=== PATIENT | female | born 1950 | race Caucasian/White ===

== ENCOUNTER → 2017-12-07 | Outpatient (CLI) | payer MEDICARE, OTHER ==
--- NOTE | 2017-12-08 10:04 | RADIOLOGY IMAGING REPORT ---
FACILITY: [facility] - [place] PATIENT NAME: MARISABEL CORBIN : [id number] MR: [id number] V: [id number] EXAM DATE: ORDERING PHYSICIAN: DANIS DRISCOLL TECHNOLOGIST: Lydia Ambriz PROCEDURE:BILATERAL DIAGNOSTIC DIGITAL MAMMOGRAM WITH CAD ASSISTED INTERPRETATION & 3D TOMOSYNTHESIS COMPARISON:Prior mammograms 11/11/16, 01/14/15, 01/01/15, 12/25/13, 09/20/12. INDICATIONS:right breast lump 10 o'clock position Right breast and Right axilla. FINDINGS: Moderately heterogeneous fibroglandular tissue is seen throughout the breasts. The parenchymal pattern has remained stable allowing for difference in mammographic technique & patient positioning. An area of postsurgical scaring in the upper outer quadrant of the Left breast is again seen from prior lumpectomy. There is no demonstration of malignant appearing mass, malignant appearing calcifications or other secondary sign of malignancy in either breast. Today's Right breast Ultrasound revealed no sonographic abnormality as detailed on a separate report. Therefore clinical follow-up recommended for patient's palpable findings. DIAGNOSTIC CATEGORY 2--BENIGN FINDING. RECOMMENDATIONS: ROUTINE MAMMOGRAM AND CLINICAL EVALUATION. IMPRESSION: BIRADS 2: Benign finding No mammographic or sonographic findings were identified to account for patient's palpable finding in the approximate 10 o'clock position of the Right breast and the axillary portion of the Right breast therefore clinical follow-up recommended. Note a negative mammogram or Ultrasound report should not preclude biopsy of the clinically suspicious lesion. Dictated by: Jacklyn Gallardo M.D. on 12/07/2017 at 17:17 Transcribed by: SHILPA on 12/08/2017 at 9:04 Approved by: Jacklyn Gallardo M.D. on 12/08/2017 at 10:02 [facility]
--- NOTE | 2017-12-09 09:58 | RADIOLOGY IMAGING REPORT ---
[place] [facility] [place] MARISABEL CORBIN : [id number] MR: [id number] V: [id number] EXAM DATE: [id number] ORDERING PHYSICIAN: DANIS DRISCOLL TECHNOLOGIST: Armando Fuentes PROCEDURE:US RIGHT BREAST COMPARISON:None. INDICATIONS:right breast lump FINDINGS: Patient states the palpable finding is in her Right axilla. The Right breast was imaged in the 9,10,11 & 12 o'clock positions of the Right breast in addition to the Right axilla revealing no sonographic abnormality therefore clinical follow-up recommended for patient's palpable findings. No abnormality was identified in the Right axilla nor in the 9-12 o'clock position of the Right breast therefore clinical follow-up recommended for patient's palpable findings. DIAGNOSTIC CATEGORY 2--BENIGN FINDING. RECOMMENDATIONS: CLINICAL EVALUATION. IMPRESSION: BIRADS 2: Benign finding No sonographic abnormality identified to account for patient's palpable findings in the Right axilla therefore clinical follow-up recommended. Abnormal or negative mammogram or Ultrasound report should not preclude biopsy of a clinically suspicious lesion. Dictated by: Jacklyn Gallardo M.D. on 12/07/2017 at 17:19 Transcribed by: SHILPA on 12/08/2017 at 9:12 Approved by: Jacklyn Gallardo M.D. on 12/09/2017 at 9:57 [facility]
== END ==
LOC: MAMO 02:17
PROVIDERS: ATTEND Family Medicine
DX: N63.11 Unspecified lump in the right breast, upper outer quadrant (principal)
CPT/HCPCS: 77062; 77066

== ENCOUNTER 2018-06-21 13:45 | Outpatient (RCR) | payer MEDICARE, OTHER ==
--- NOTE | 2018-04-07 17:07 | PT INITIAL EVALUATION ---
MEDICAL DIAGNOSIS: Hand Swelling, Localized Edema TREATMENT DIAGNOSIS: Left UE Lymphedema DATE OF ONSET: 01/05/18 SUBJECTIVE: Shira is a 67 year old female presenting to physical therapy following onset of L UE swelling starting in January 2018. Pt reports that after several warm days she noticed her L hand started swelling. The swelling came on gradually and use to go down all the way at night, but now no longer does. Pt reports a history of L breast cancer with lymph node removal, radiation and chemotherapy in 1992. Since Shira has had occasional swelling of the L LE, but never in the L arm until now. Pt reports no pain with swelling but does have discomfort with pressure and tightness of the skin. Pt started wearing an arthritis compression glove which seems to keep it from worsening at this time. REHAB PROBLEM LIST: Decreased ROM Decreased Function Decreased ADL's Decreased Mobility PREVIOUS MEDICAL HISTORY: Hx of RA in B hands, See EMR OCCUPATION: Retired [employer] Programmer OBJECTIVE: Pt presents with increased swelling of the L UE compared to the R with swelling most present in the dorsum of the hand and fingers. Palpation: Pt has 3+ pitting edema on the dorsum of the hand. Stemmer's sign positive on dorsum and on digits 2-4. 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 Physical therapy consisting of complete decongestive therapy (CDT) is indicated for this patient to improve functional mobility with ADL's and treat the above listed impairments. Short Term Goals In 2 weeks pt will reduce L UE circumferential volume of the wrist by 30% compared to the R UE. In 4 weeks pt will reduce L UE circumferential volume of the wrist by 60% compared to the R UE. In 4 weeks pt will decrease LLIS score to 15/20 or less for improved function with ADL's. In 4 weeks pt will be independent with HEP and compression garment use fo management of lymphedema. Patient's Goals Decrease edema, improve functional use of L UE PLAN: Patient to be seen for Manual Therapy/STM/MET Strengthening/condition Range of Motion Stretching Neuromuscular Re-ed Posture/Body mechanics Home Exercise Program Mech./Manual Traction Therapeutic Activities 5x/Week for 4 Weeks If you have any questions, comments, or concerns about this report or plan, please contact me at . Thank you, Snow Wilson, PT, DPT, CLT MTDD
--- NOTE | 2018-05-02 10:22 | PT PLAN OF CARE ---
Physician: TEGAN Saucedo Patient is being seen: 4x/Week Therapist: Snow Wilson, PT, DPT, CLT Medical Diagnosis: Hand Swelling, Localized Edema Treatment Diagnosis: Left UE Lymphedema Date of Onset: 01/05/18 Date of Initial Evaluation: 04/07/18 Date patient was last seen: 05/01/18 Number of treatments: 11 Number of cancellations/No shows: 0 INTERVENTIONS: Manual Therapy/STM/MET Strengthening/condition Range of Motion Stretching Neuromuscular Re-ed Posture/Body mechanics Home Exercise Program Mech./Manual Traction Therapeutic Activities GOALS: In 2 weeks pt will reduce L UE circumferential volume of the wrist by 30% compared to the R UE. MET In 4 weeks pt will reduce L UE circumferential volume of the wrist by 60% compared to the R UE. MET In 4 weeks pt will decrease LLIS score to 15/20 or less for improved function with ADL's. MET In 4 weeks pt will be independent with HEP and compression garment use for management of lymphedema. In Progress PATIENT'S GOAL: Decrease edema, improve functional use of L UE Status of Patient's Goals: 3/4 MET, 1/4 In progress Patient Compliance: Excellent Prognosis: Good Reasons for continuing therapy: Shira continues to show good reductions in edema with lingering swelling present in the dorsum of hand as well as in digits 1-3. Arm shows good reductions with improved mobility with lymph re-routing requiring progression towards compression garments only requiring a glove at this time. Secondary to decreased tolerance with wrapping, pt had early progression towards compression garments with reductions still occurring. Pt is in the process of ordering her own compression garments for progression towards independence with continued MLD at this time. OBJECTIVE: Pt presents with increased swelling of the L UE compared to the R with swelling most present in the dorsum of the hand and fingers. Palpation: Pt has 3+ pitting edema on the dorsum of the hand. Stemmer's sign positive on dorsum and on digits 2-4. Special Tests: Lymphedema Life Impact Scale (LLIS): Other Objective Findings: Circumferential measures Initial Evaluation (R, L) in cm: 1st digit: 5.9, 6.1, 2nd digit: 5.9, 6.6, 3rd: 5.6, 6.5, 4th: 5.4, 6.1, 5th: 4.9, 5.6, Dorsum: 18.8, 19.9, Wrist: 15.3, 17.0, Forearm: 21.9, 23.5, Elbow: 21.6, 23.6, Above Elbow: 21.3, 23.4, 10cm above elbow: 23.9, 25.2 Circumferential measures 18 (R, L) in cm: 1st digit: 5.9, 6.1, 2nd digit: 5.9, 6.5, 3rd: 5.6, 6.0, 4th: 5.4, 5.5, 5th: 4.9, 5.5, Dorsum: 18.8, 18.9, Wrist: 15.3, 15.6, Forearm: 21.9, 23.0, Elbow: 21.6, 23.6, Above Elbow: 21.3, 23.1, 10cm above elbow: 23.9, 24.3 If you have any questions or concerns, please feel free to contact me at [phone]. Thank you, Snow Wilson, PT, DPT, CLT MTDD
--- NOTE | 2018-05-19 12:25 | PT PLAN OF CARE ---
Physician: TEGAN Saucedo Patient is being seen: 4x/week Therapist: Snow Wilson, PT, DPT, CLT Medical Diagnosis: Hand Swelling, Localized Edema Treatment Diagnosis: Left UE Lymphedema Date of Onset: 01/05/18 Date of Initial Evaluation: 04/07/18 Date patient was last seen: 05/19/18 Number of treatments: 21 Number of cancellations/No shows: 1 INTERVENTIONS: Manual Therapy/STM/MET Strengthening/condition Range of Motion Stretching Neuromuscular Re-ed Posture/Body mechanics Home Exercise Program Mech./Manual Traction Therapeutic Activities GOALS: In 2 weeks pt will reduce L UE circumferential volume of the wrist by 30% compared to the R UE. MET In 4 weeks pt will reduce L UE circumferential volume of the wrist by 60% compared to the R UE. MET In 4 weeks pt will decrease LLIS score to 15/20 or less for improved function with ADL's. MET In 4 weeks pt will be independent with HEP and compression garment use for management of lymphedema. In Progress PATIENT'S GOAL: Decrease edema, improve functional use of L UE Status of Patient's Goals: 3/4 MET, 1/4 In progress Patient Compliance: Excellent Prognosis: Good Reasons for continuing therapy: Shira shows good progress with reductions in circumferential volume of the UE with lingering edema present between metacarpal bones as well as at the base of digits 2-4 with minimal reductions at this point. With recent changes in foam inserts the area between distal metacarpals shows improvement with significant changes between the 4th and 5th. Hand and digit mobility show improved function with lingering numbness present from initial wrapping pressure points. The remaining forearm and upper arm show good reductions with near equal circumference compared to the other limb. OBJECTIVE: Pt presents with increased swelling of the L UE compared to the R with swelling most present in the dorsum of the hand and fingers. Palpation: Pt has 3+ pitting edema on the dorsum of the hand. Stemmer's sign positive on dorsum and on digits 2-4. Special Tests: Lymphedema Life Impact Scale (LLIS): Other Objective Findings: Circumferential measures Initial Evaluation (R, L) in cm: 1st digit: 5.9, 6.1, 2nd digit: 5.9, 6.6, 3rd: 5.6, 6.5, 4th: 5.4, 6.1, 5th: 4.9, 5.6, Dorsum: 18.8, 19.9, Wrist: 15.3, 17.0, Forearm: 21.9, 23.5, Elbow: 21.6, 23.6, Above Elbow: 21.3, 23.4, 10cm above elbow: 23.9, 25.2 Circumferential measures 05/01/18 (R, L) in cm: 1st digit: 5.9, 6.1, 2nd digit: 5.9, 6.5, 3rd: 5.6, 6.0, 4th: 5.4, 5.5, 5th: 4.9, 5.5, Dorsum: 18.8, 18.9, Wrist: 15.3, 15.6, Forearm: 21.9, 23.0, Elbow: 21.6, 23.6, Above Elbow: 21.3, 23.1, 10cm above elbow: 23.9, 24.3 Circumferential measures 05/01/18 (R, L) in cm: 1st digit: 5.9, 6, 2nd digit: 5.9, 6.2, 3rd: 5.6, 6.0, 4th: 5.4, 5.5, 5th: 4.9, 5.4, Dorsum: 18.8, 18.2, Wrist: 15.3, 15.0, Forearm: 21.9, 22.8, Elbow: 21.6, 21.9, Above Elbow: 21.3, 23.1, 10cm above elbow: 23.9, 23.1 If you have any questions or concerns, please feel free to contact me at [phone]. Thank you, Snow Wilson, PT, DPT, CLT MTDD
--- NOTE | 2018-06-16 16:59 | PT PLAN OF CARE ---
Physician: TEGAN Saucedo Patient is being seen: 1-2x/Week Therapist: Snow Wilson, PT, DPT, CLT Medical Diagnosis: Hand Swelling, Localized Edema Treatment Diagnosis: Left UE Lymphedema Date of Onset: 01/05/18 Date of Initial Evaluation: 04/07/18 Date patient was last seen: 06/16/18 Number of treatments: 33 Number of cancellations/No shows: 1 INTERVENTIONS: Manual Therapy/STM/MET Strengthening/condition Range of Motion Stretching Neuromuscular Re-ed Posture/Body mechanics Home Exercise Program Mech./Manual Traction Therapeutic Activities GOALS: In 2 weeks pt will reduce L UE circumferential volume of the wrist by 30% compared to the R UE. MET In 4 weeks pt will reduce L UE circumferential volume of the wrist by 60% compared to the R UE. MET In 4 weeks pt will decrease LLIS score to 15/20 or less for improved function with ADL's. MET In 4 weeks pt will be independent with HEP and compression garment use for management of lymphedema. In Progress PATIENT'S GOAL: Decrease edema, improve functional use of L UE Status of Patient's Goals: 3/4 MET, 1/4 In progress Patient Compliance: Excellent Prognosis: Good Reasons for continuing therapy: Shira shows excellent maintenance of edema with both the sleeve and her glove garment. Pt is to be evaluated for a custom garment eliminating the need for the sleeve, but is having difficulty coordinating the process. Pt to trial glove with tubular stockinette to the mid forearm level for comparison on maintenance of edema without sleeve. OBJECTIVE: Pt presents with increased swelling of the L UE compared to the R with swelling most present in the dorsum of the hand and fingers. Palpation: Pt has 3+ pitting edema on the dorsum of the hand. Stemmer's sign positive on dorsum and on digits 2-4. Special Tests: Lymphedema Life Impact Scale (LLIS): 1.5/72 Other Objective Findings: Circumferential measures Initial Evaluation (R, L) in cm: 1st digit: 5.9, 6.1, 2nd digit: 5.9, 6.6, 3rd: 5.6, 6.5, 4th: 5.4, 6.1, 5th: 4.9, 5.6, Dorsum: 18.8, 19.9, Wrist: 15.3, 17.0, Forearm: 21.9, 23.5, Elbow: 21.6, 23.6, Above Elbow: 21.3, 23.4, 10cm above elbow: 23.9, 25.2 Circumferential measures 05/01/18 (R, L) in cm: 1st digit: 5.9, 6.1, 2nd digit: 5.9, 6.5, 3rd: 5.6, 6.0, 4th: 5.4, 5.5, 5th: 4.9, 5.5, Dorsum: 18.8, 18.9, Wrist: 15.3, 15.6, Forearm: 21.9, 23.0, Elbow: 21.6, 23.6, Above Elbow: 21.3, 23.1, 10cm above elbow: 23.9, 24.3 Circumferential measures 05/19/18 (R, L) in cm: 1st digit: 5.9, 6, 2nd digit: 5.9, 6.2, 3rd: 5.6, 6.0, 4th: 5.4, 5.5, 5th: 4.9, 5.4, Dorsum: 18.8, 18.2, Wrist: 15.3, 15.0, Forearm: 21.9, 22.8, Elbow: 21.6, 21.9, Above Elbow: 21.3, 23.1, 10cm above elbow: 23.9, 23.1 Circumferential measures 06/16/18 (R, L) in cm: 1st digit: 5.9, 6.0, 2nd digit: 5.9, 5.9, 3rd: 5.6, 5.9, 4th: 5.4, 5.5, 5th: 4.9, 5.1, Dorsum: 18.8, 17.5, Wrist: 15.3, 15.1, Forearm: 21.9, 22.8, Elbow: 21.6, 21.9, Above Elbow: 21.3, 21.3, 10cm above elbow: 23.9, 23.6 If you have any questions or concerns, please feel free to contact me at [phone]. Thank you, Snow Wilson, PT, DPT, CLT JAXOND
--- NOTE | 2018-06-21 15:54 | PT PLAN OF CARE ---
Physician: TEGAN Saucedo Patient is being seen: 5x/Week Therapist:Snow Wilson, PT, DPT, CLT Medical Diagnosis: Hand Swelling, Localized Edema Treatment Diagnosis: Left UE Lymphedema Date of Onset: 01/05/18 Date of Initial Evaluation: 04/07/18 Date patient was last seen: 06/21/18 Number of treatments: 34 Number of cancellations/No shows: 1 INTERVENTIONS: Manual Therapy/STM/MET Strengthening/condition Range of Motion Stretching Neuromuscular Re-ed Posture/Body mechanics Home Exercise Program Mech./Manual Traction Therapeutic Activities GOALS: In 2 weeks pt will reduce L UE circumferential volume of the wrist by 30% compared to the R UE. MET In 4 weeks pt will reduce L UE circumferential volume of the wrist by 60% compared to the R UE. MET In 4 weeks pt will decrease LLIS score to 15/20 or less for improved function with ADL's. MET In 4 weeks pt will be independent with HEP and compression garment use for management of lymphedema. MET PATIENT'S GOAL: Decrease edema, improve functional use of L UE Status of Patient's Goals: 4/4 MET Patient Compliance: Excellent Prognosis: Good Reasons for discharge from therapy: Shira is to discharge from physical therapy at this time secondary to completion of all of her functional goals. At the time of discharge Shira shows great progression towards independent maintenance of lymphedema through self MLD, compression garment use, and exercise. Reductions continue to improve with good mobility and viable tendinous structures throughout the hand. Upon discharge pt is to continue with self maintenance phase and seek further PT if any regression occurs. OBJECTIVE: Pt presents with increased swelling of the L UE compared to the R with swelling most present in the dorsum of the hand and fingers. Palpation: Pt has 3+ pitting edema on the dorsum of the hand. Stemmer's sign positive on dorsum and on digits 2-4. Special Tests: Lymphedema Life Impact Scale (LLIS): 1.5/72 Other Objective Findings: Circumferential measures Initial Evaluation (R, L) in cm: 1st digit: 5.9, 6.1, 2nd digit: 5.9, 6.6, 3rd: 5.6, 6.5, 4th: 5.4, 6.1, 5th: 4.9, 5.6, Dorsum: 18.8, 19.9, Wrist: 15.3, 17.0, Forearm: 21.9, 23.5, Elbow: 21.6, 23.6, Above Elbow: 21.3, 23.4, 10cm above elbow: 23.9, 25.2 Circumferential measures 05/01/18 (R, L) in cm: 1st digit: 5.9, 6.1, 2nd digit: 5.9, 6.5, 3rd: 5.6, 6.0, 4th: 5.4, 5.5, 5th: 4.9, 5.5, Dorsum: 18.8, 18.9, Wrist: 15.3, 15.6, Forearm: 21.9, 23.0, Elbow: 21.6, 23.6, Above Elbow: 21.3, 23.1, 10cm above elbow: 23.9, 24.3 Circumferential measures 05/19/18 (R, L) in cm: 1st digit: 5.9, 6, 2nd digit: 5.9, 6.2, 3rd: 5.6, 6.0, 4th: 5.4, 5.5, 5th: 4.9, 5.4, Dorsum: 18.8, 18.2, Wrist: 15.3, 15.0, Forearm: 21.9, 22.8, Elbow: 21.6, 21.9, Above Elbow: 21.3, 23.1, 10cm above elbow: 23.9, 23.1 Circumferential measures 06/16/18 (R, L) in cm: 1st digit: 5.9, 6.0, 2nd digit: 5.9, 5.9, 3rd: 5.6, 5.9, 4th: 5.4, 5.5, 5th: 4.9, 5.1, Dorsum: 18.8, 17.5, Wrist: 15.3, 15.1, Forearm: 21.9, 22.8, Elbow: 21.6, 21.9, Above Elbow: 21.3, 21.3, 10cm above elbow: 23.9, 23.6 If you have any questions or concerns, please feel free to contact me at [phone]. Thank you, Snow Wilson, PT, DPT, CLT JAXOND
== END 2018-06-21 18:00 | disposition home or self-care (01) ==
LOC: PT 13:45
PROVIDERS: ATTEND Physician Assistant Medical
DX: I89.0 Lymphedema, not elsewhere classified (principal); Z85.3 Personal history of malignant neoplasm of breast; Z92.21 Personal history of antineoplastic chemotherapy; Z92.3 Personal history of irradiation
CPT/HCPCS: 97161

== ENCOUNTER → 2018-11-20 | Outpatient (REF) | payer MEDICARE, OTHER ==
[2018-11-20 14:37] LABS: PLATELET COUNT, AUTOMATED 158 K/uL (150-450)
== END ==
LOC: ZZSENDIN 14:27
PROVIDERS: ATTEND Family Medicine
DX: D70.9 Neutropenia, unspecified (principal)
CPT/HCPCS: 85007; 85027

== ENCOUNTER → 2018-12-28 | Outpatient (CLI) | payer MEDICARE, OTHER ==
[2018-12-28 15:36] LABS: PLATELET COUNT, AUTOMATED 153 K/uL (150-450)
== END ==
LOC: LAB 15:21
PROVIDERS: ATTEND Internal Medicine
DX: D70.9 Neutropenia, unspecified (principal)
CPT/HCPCS: 36415; 85025

== ENCOUNTER → 2019-01-09 | Outpatient (CLI) | payer MEDICARE, OTHER ==
--- NOTE | 2019-01-09 10:53 | RADIOLOGY IMAGING REPORT ---
FACILITY: [facility] - [place] PATIENT NAME: Shira Giron : 1950 MR: [id number] V: [id number] EXAM DATE: ORDERING PHYSICIAN: DANIS DRISCOLL TECHNOLOGIST: Location: [facility] Patient: Shira Giron : 1950 Visit/Account:[id number] Date of Sevice: 01/09/2019 Limited abdominal ultrasound of the right upper quadrant Indication: Right upper quadrant pain , Comparison: None available Findings Liver is normal in size, contour, and echotexture and measures 12.9 cm in length. There is normal hep atopedal portal venous flow. Gallbladder wall thickness is 1.4 mm with no evidence of shadowing stone or sludge within the gallbla dder lumen. Negative sonographic Banuelos's sign reported by the technologist. Common duct measures 5.5 mm in maximum diameter with no evidence of shadowing stone. The head and proximal body of the pancreas is unremarkable. The distal body and tail is obscured by o verlying bowel gas. Abdominal aorta and IVC are patent and unremarkable. The right kidney is normal in size, contour, and echotexture and measures 10.3 cm in length. Two sub centimeter simple cysts are noted within the midpole. IMPRESSION: 1. Unremarkable appearance of the gallbladder and no acute abnormality on this ultrasound of the righ t upper quadrant region. Report Dictated By: Dave Sommer at 01/09/2019 10:39 AM Report E-Signed By: Dave Sommer at 01/09/2019 10:48 AM WSN:[id number]
== END ==
LOC: US 00:23
PROVIDERS: ATTEND Family Medicine
DX: R10.811 Right upper quadrant abdominal tenderness (principal)
CPT/HCPCS: 76705

== ENCOUNTER 2019-01-22 10:26 | Outpatient (RCR) | payer MEDICARE, OTHER ==
[2018-12-04 14:41] VITALS: BP 120/70
[2018-12-07 15:25] LABS: PLATELET COUNT, AUTOMATED 155 K/uL (150-450)
[2018-12-18 15:50] LABS: PLATELET COUNT, AUTOMATED 159 K/uL (150-450)
--- NOTE | 2018-12-19 09:28 | [facility] ONCOLOGY NOTE ---
EVENT DATE: December 04, 2018 CHIEF COMPLAINT/REASON FOR VISIT Ms. Young is a pleasant 68-year old female with a history of Neutropenia that presents for initial consultation. HISTORY OF PRESENT ILLNESS Shira presents to establish care. She has an extensive medical history that is outlined in her chart. Given is extensiveness, I am not transcribing it. Her personal history is remarkable for breast cancer, arthritis, asthma, osteoporosis, benign breast and thyroid biopsies. With her breast cancer, she received a lumpectomy with radiation, lymph node dissection and tamoxifen. She did not receive chemotherapy. Thus, I am not as concerned about her developing acute leukemia from her prior cancer history. She states this has been a problem in the past. It is possible that she has sickle neutropenia. Before we get a bone marrow biopsy, I would like to get more data with getting weekly labs for a time to see if there are any obvious patterns. She is postmenopausal, which makes the leukopenia slightly less likely. If this is chronic leukopenia, though, that increases the risks of MDS and we would need to follow her closely. PAST MEDICAL HISTORY Reviewed in the chart. MEDICATIONS Medication list reviewed. This includes many supplements, also included in the chart. SOCIAL HISTORY Patient is retired. She is . She has two children, ages 28 and 35. Postmenopausal. No alcohol or tobacco use. FAMILY HISTORY Remarkable for a mother who from pancreatic cancer. Her father has heart failure and diabetes. REVIEW OF SYSTEMS CONSTITUTIONAL: No fevers, chills, significant weight change. HEENT: No headache or vision changes. CARDIOVASCULAR: No chest pain, dyspnea on exertion or edema. RESPIRATORY: No shortness of breath, wheeze or cough. GI: No nausea, vomiting, diarrhea or constipation. : No dysuria or hematuria. MUSCULOSKELETAL: No weakness or joint pain. PSYCHIATRIC: No anxiety or depression. ENDOCRINE: No heat or cold intolerance. Remainder of 14-point review of systems otherwise negative. PHYSICAL EXAMINATION VITAL SIGNS: Blood pressure 120/70, pulse 85, respiratory rate 16, temperature 98.5 Fahrenheit, oxygen saturation 94% on room air. Weight 55.8 kg. Pain 2/10. Fatigue 0/10. GENERAL: Stable position, resting comfortably in her chair. HEENT: Normocephalic, atraumatic. CARDIOVASCULAR: Regular rate and rhythm. LUNGS: Clear. ABDOMEN: Soft, nontender. BREASTS: Deferred. EXTREMITIES: No clubbing, cyanosis or edema. Remainder of her physical exam is otherwise unremarkable. IMPRESSION/REPORT/PLAN Ms. Young is a pleasant 68-year old female with the following: Neutropenia. She has had this for some time. She has other abnormalities on the CBC as well. She has no prior history of chemotherapy to suggest post breast cancer myelodysplasia. I would like to get weekly labs until I see her again in approximately one to two months to see if this is cyclic versus chronic neutropenia. If we see that this is more of a chronic issue or if multiple cell lines are abnormal then I will recommend a bone marrow biopsy. We plan to get a peripheral smear as well. I answered all of her many questions. Extensive review of her extensive records and discussion today. Billing New patient level 4. Total time 45 minutes, counseling time 30. MTDD
[2019-01-22 10:33] VITALS: BP 107/63
--- NOTE | 2019-01-23 11:16 | [facility] ONCOLOGY NOTE ---
EVENT DATE: January 22, 2019 CHIEF COMPLAINT/REASON FOR VISIT Ms. Young is a very pleasant 68-year old female with a new diagnosis of cyclic neutropenia here for followup. HISTORY OF PRESENT ILLNESS Shira returns. She has an extensive history outlined by the notes by Dr. Escalona. Her personal history is remarkable for breast cancer, arthritis, asthma, osteoporosis, both breast and thyroid benign biopsies. She did receive radiation, lymph node dissection and tamoxifen with her breast cancer but no chemotherapy. I do not believe that her neutropenia is related to this treatment. Going back to 2004, I do note that her neutrophil to lymphocyte ratio was lower than expected. She is menopausal but I do believe based on the labs from the last two months that this is cyclic neutropenia. We can see neutropenia that improves after severe infection but Shira did not have any major hospitalizations or major infections over the winter. Overall, she continues to feel quite well. She thinks she may be improving compared to the fall but this could be related to being more active as we approach the spring, warmer temperatures. No other new issues today. PAST MEDICAL HISTORY Reviewed in the chart. SOCIAL HISTORY Patient is retired. She is . She has two children, ages 28 and 35. Postmenopausal. No alcohol or tobacco use. FAMILY HISTORY Remarkable for a mother who from pancreatic cancer. Her father has heart failure and diabetes. REVIEW OF SYSTEMS CONSTITUTIONAL: No fevers, chills, significant weight change. HEENT: No headache or vision changes. CARDIOVASCULAR: No chest pain, dyspnea on exertion or edema. RESPIRATORY: No shortness of breath, wheeze or cough. GI: No nausea, vomiting, diarrhea or constipation. : No dysuria or hematuria. MUSCULOSKELETAL: No weakness or joint pain. PSYCHIATRIC: No anxiety or depression. ENDOCRINE: No heat or cold intolerance. Remainder of 14-point review of systems otherwise negative. PHYSICAL EXAMINATION VITAL SIGNS: Blood pressure 107/63, pulse 73, respiratory rate 16, temperature 96.7 Fahrenheit, oxygen saturation 96% on room air. Weight 55.8 kg. Pain 0/10. Fatigue 0/10. GENERAL: Stable condition, resting comfortably in the chair. HEENT: Normocephalic, atraumatic. CARDIOVASCULAR: Regular rate and rhythm. LUNGS: Clear. ABDOMEN: Soft, nontender. No organomegaly or masses. No splenomegaly in particular. Remainder of physical exam is otherwise unremarkable. IMPRESSION/REPORT/PLAN Ms. Young is a pleasant 68-year old female with the following: Cyclic neutropenia. Her neutrophils have improved from 0.[address] up to 1.3 most recently. They are still low but I do not believe that she has chronic persistent neutropenia that would be a risk for MDS or AML. Given the rise, I believe this is more cyclic neutropenia. I did safety counselor her that I expect her levels to fall in the future. There could be many months between drops of her neutrophil count as she is postmenopausal. In premenopausal patients, we often can see it tied to her monthly menstrual cycles but this would not be the case for Shira. If we see more issues with other cell lines, then I would like to see her again and get a bone marrow biopsy. I think the most prudent plan would be to have a low threshold for antibiotics if she has issues with infection and to obtain a CBC prior to any procedure to see if he requires preventative antibiotics. I do not recommend preventative antibiotics continuously, though, due to risks of resistance development. I advised her that we would be happy to see her in clinic or she could follow with Dr. Escalona as well and we would see her as needed. After discussion, I will see her as needed with labs twice a year and followup with Dr. Escalona. Dr. Escalona, thank you very much for the consultation of this very kind patient of yours. Feel free to reach out to us if you have any questions at any time beyond what we discussed above. Billing Return visit level 4. Total time 30 minutes, counseling time 20. MTDD
== END 2019-02-05 14:48 | disposition home or self-care (01) ==
LOC: ONC 10:26
PROVIDERS: ATTEND Internal Medicine
DX: D70.9 Neutropenia, unspecified (principal); Z78.0 Asymptomatic menopausal state
CPT/HCPCS: G0463 ×4; 36415; 85025; 99202; 99212